=== PATIENT | male | born 1935 | race Caucasian/White ===

== ENCOUNTER 2021-03-13 12:42 | Observation (INO) ==
[2021-03-13 13:45] LABS: Basophils % 0.3 %; Eosinophils # 0.1 K/mcL (0.0-0.6); Eosinophils % 1.5 %; Hematocrit 38.9 % (37.5-50.1); Hemoglobin 12.8 g/dL (12.9-16.9); Immature Granulocytes % 2.6 % (0-4); Lymphocytes # 1.5 K/mcL (0.6-4.6); Lymphocytes % 22.6 %; Mean Corpuscular HGB Conc 32.9 g/dL (31.6-35.5); Mean Corpuscular Hemoglobin 29.4 pg (28.0-33.3); Mean Corpuscular Volume 89.4 fL (83.0-100.0); Mean Platelet Volume 9.6 fL (9.4-12.4); Monocytes # 0.8 K/mcL (0.0-1.3); Monocytes % 12.1 %; Platelet Count 159 K/mcL (140-400); Red Blood Count 4.35 M/mcL (4.19-5.50); Red Cell Distribution Width 13.9 % (11.5-14.5); Segmented Neutrophils % 60.9 %; White Blood Count 6.5 K/mcL (4.3-11.1)
[2021-03-13 13:52] LABS: INR 1.4; Prothrombin Time 15.6 Seconds (9.4-12.1)
[2021-03-13 14:37] LABS: BUN/Creatinine Ratio 13 (6-26); Blood Urea Nitrogen 14 mg/dL (8-23); Calcium 9.4 mg/dL (8.6-10.3); Carbon Dioxide 25 mEq/L (23-29); Chloride 104 mEq/L (98-107); Glucose 160 mg/dL (70-105); Osmolality,Calculated 286 (280-300); Potassium 4.1 mEq/L (3.5-5.1); Sodium 136 mEq/L (136-145); Troponin I < 0.03 ng/mL (< 0.04); eGFR For African Americans > 60 (> 60); eGFR For Non-African Americans > 60 (> 60)
[2021-03-13] MEDS ORDERED: Ondansetron 4 MG/2 ML VIAL IVP PRN (16:41)
[2021-03-13] MEDS ORDERED: Naloxone 0.4 MG/ML INJ IVP PRN (16:41)
[2021-03-13] MEDS ORDERED: Acetaminophen 325 MG TABLET PO PRN (16:41)
[2021-03-13] MEDS ORDERED: Perflutren Lipid Microsphere 1.3 ML in 0.9 % Sodium Chloride 8.7 ML IVP PRN (16:45)
[2021-03-13] MEDS ORDERED: Aspirin Enteric Coated 325 MG Tablet PO ONE (16:45)
[2021-03-13 19:51] LABS: Adenovirus Not Detected (Not Detect); Coronavirus 229E Not Detected (Not Detect); Coronavirus HKU1 Not Detected (Not Detect); Coronavirus NL63 Not Detected (Not Detect); Coronavirus OC43 Not Detected (Not Detect)
[2021-03-13 19:52] LABS: Bordetella Pertussis Not Detected (Not Detect); Chlamydophila pneumoniae Not Detected (Not Detect); Human Metapneumovirus Not Detected (Not Detect); Human Rhinovirus/Enterovirus Not Detected (Not Detect); Influenza A Subtype 2009 H1 Not Detected (Not Detect); Influenza B Not Detected (Not Detect); Mycoplasma pneumoniae Not Detected (Not Detect); Parainfluenza Virus 1 Not Detected (Not Detect); Parainfluenza Virus 2 Not Detected (Not Detect); Parainfluenza Virus 3 Not Detected (Not Detect); Parainfluenza Virus 4 Not Detected (Not Detect); Respiratory Syncytial Virus Not Detected (Not Detect); SARS-CoV-2 DETECTED (Not Detect)
[2021-03-13] MEDS ORDERED: Benzonatate 100 MG CAPSULE PO PRN (20:05)
[2021-03-13] MEDS ORDERED: Ipratropium 1 PUFF INHALER IH PRN (20:05)
[2021-03-14 01:47] LABS: Basophils % 0.3 %; Eosinophils # 0.1 K/mcL (0.0-0.6); Eosinophils % 1.5 %; Hematocrit 37.9 % (37.5-50.1); Hemoglobin 12.6 g/dL (12.9-16.9); Immature Granulocytes % 3.4 % (0-4); Immature Platelets 2.2 % (1.1-6.1); Lymphocytes # 1.9 K/mcL (0.6-4.6); Lymphocytes % 28.6 %; Mean Corpuscular HGB Conc 33.2 g/dL (31.6-35.5); Mean Corpuscular Hemoglobin 29.4 pg (28.0-33.3); Mean Corpuscular Volume 88.3 fL (83.0-100.0); Mean Platelet Volume 9.5 fL (9.4-12.4); Monocytes # 1.1 K/mcL (0.0-1.3); Monocytes % 15.9 %; Neutrophils # 3.4 K/mcL (1.6-8.9); Platelet Count 153 K/mcL (140-400); Red Blood Count 4.29 M/mcL (4.19-5.50); Segmented Neutrophils % 50.3 %; White Blood Count 6.8 K/mcL (4.3-11.1)
[2021-03-14 01:53] LABS: INR 1.4; Prothrombin Time 15.3 Seconds (9.4-12.1)
[2021-03-14 01:55] LABS: Estimated Average Glucose 134 mg/dl; Hemoglobin A1C 6.3 %
[2021-03-14 02:08] LABS: BUN/Creatinine Ratio 16 (6-26); Blood Urea Nitrogen 15 mg/dL (8-23); Calcium 9.2 mg/dL (8.6-10.3); Carbon Dioxide 23 mEq/L (23-29); Chloride 108 mEq/L (98-107); Chol/HDL Ratio 3.8 (0-4.9); Cholesterol 119 mg/dL (< 200); Glucose 96 mg/dL (70-105); HDL Cholesterol 31 mg/dL (40-59); LDL Cholesterol,Calculated 71 mg/dL (< 100); Osmolality,Calculated 285 (280-300); Potassium 4.2 mEq/L (3.5-5.1); Sodium 137 mEq/L (136-145); Triglycerides 84 mg/dL (< 150); eGFR For African Americans > 60 (> 60); eGFR For Non-African Americans > 60 (> 60)
[2021-03-14] MEDS ORDERED: Aspirin Enteric Coated 81 MG Tablet PO SCH (09:00)
[2021-03-14] MEDS ORDERED: Isosorbide MONOnitrate (24 HR) 30 MG TAB.ER.24H PO SCH (10:45)
[2021-03-14 11:15] VITALS: BP 181/84; PULSE 54; TEMP 97.9; O2SAT 96
[2021-03-14] MEDS ORDERED: Casirivimab/Imdevima 600/600MG 1,200 MG in 0.9 % Sodium Chloride 50 ML IVPB ONE (12:03)
[2021-03-14] MEDS ORDERED: methylPREDNISolone 125 MG/2 ML VIAL IVP PRN ×2 (12:03→12:38)
[2021-03-14] MEDS ORDERED: EPINEPHrine 1 MG/ML VIAL IM PRN ×2 (12:03→12:38)
[2021-03-14] MEDS ORDERED: Acetaminophen 325 MG TABLET PO PRN (12:38)
[2021-03-14] MEDS ORDERED: Ondansetron 4 MG/2 ML VIAL IVP PRN (12:38)
[2021-03-14] MEDS ORDERED: BAMLANIVIMAB 700 MG IVPB ONE (12:45)
[2021-03-14] MEDS ORDERED: ETESEVIMAB IVPB ONE (12:45)
[2021-03-14] MEDS ORDERED: SODIUM CHLORIDE 0.9% IVPB ONE (12:45)
== END 2021-03-14 14:01 | disposition home or self-care (01) ==
LOC: EMEROOARM 12:42 → 3BNU 12:42
PROVIDERS: ADMIT Pharmacist; ATTEND Pharmacist